=== PATIENT | male | born 1985 | race Hispanic/Latino ===

== ENCOUNTER 2021-06-23 17:53 | Inpatient (IN) | payer OTHER ==
[~2021-06-23] VITALS: Ht 180.3 cm; Wt 60.9 kg
[2021-06-23] MEDS ORDERED: SODIUM CHLORIDE 0.9% 500ML 500 ML IV ONE ×2 (18:15→21:15)
[2021-06-23 18:26] LABS: BASOPHILS % 0.2 % (0.0-1.0); EOSINOPHILS # (AUTO) 0.2 (0.0-0.4); EOSINOPHILS % 1.2 % (0.0-6.0); HEMATOCRIT 32.7 % (38.2-49.6); HEMOGLOBIN 10.9 g/dL (14.0-18.0); LYMPHOCYTES # (AUTO) 3.1 (1.0-3.2); LYMPHOCYTES % 16.6 % (18.0-39.1); MEAN CORPUSCULAR HEMOGLOBIN 29.2 pg (28-32); MEAN CORPUSCULAR HGB CONC 33.3 g/dL (31-35); MEAN CORPUSCULAR VOLUME 87.7 fL (81-99); MONOCYTES # (AUTO) 1.2 (0.2-0.8); MONOCYTES % 6.2 % (4.4-11.3); NEUTROPHILS % 73.8 % (38.7-80.0); PLATELET COUNT 286 x10e3/uL (140-360); RED BLOOD COUNT 3.73 x10e6/uL (4.3-5.7); RED CELL DISTRIBUTION WIDTH 14.8 % (11.7-14.4)
[2021-06-23 18:38] LABS: INR 0.84; PROTHROMBIN TIME 12.2 seconds (11.9-14.5)
[2021-06-23 18:39] LABS: PARTIAL THROMBOPLASTIN TIME 27.8 seconds (23.8-35.5)
[2021-06-23] MEDS ORDERED: NALOXONE HCL 2MG/2 ML SYRINGE IV ONE ×2 (18:45→22:00)
[2021-06-23 18:48] LABS: ALBUMIN 2.4 g/dL (3.5-5.0); ALBUMIN/GLOBULIN RATIO 1.2 (0.8-2.0); ANION GAP 17.4 mmol/L (8-16); CALCIUM 7.9 mg/dL (8.4-10.2); CREATININE, SERUM 9.66 mg/dL (0.72-1.25); POTASSIUM 4.4 mmol/L (3.5-5.1)
[2021-06-23 18:56] LABS: CREATINE KINASE MB 4.5 ng/mL (0-5.0)
[2021-06-23] MEDS ORDERED: METOCLOPRAMIDE10 MG PO (19:11)
[2021-06-23] MEDS ORDERED: PROPRANOLOL HCL10 MG PO (19:11)
[2021-06-23] MEDS ORDERED: MIDODRINE HCL5 MG PO (19:11)
[2021-06-23] MEDS ORDERED: AURYXIA210 MG PO (19:11)
[2021-06-23] MEDS ORDERED: PROTONIX20 MG PO (19:11)
[2021-06-23] MEDS ORDERED: ULTRAM50 MG PO (19:11)
[2021-06-23] MEDS ORDERED: FOLIC ACID0.4 MG PO (19:11)
[2021-06-23] MEDS ORDERED: BUPROPION HCL75 MG PO (19:11)
[2021-06-23] MEDS ORDERED: FUROSEMIDE40 MG PO (19:11)
[2021-06-23] MEDS ORDERED: SODIUM CHLORIDE FLUSH 10 ML SYR INJ PRN (21:15)
[2021-06-23] MEDS: PIPERACILLIN/TAZOBACTAM 2.25 GM in SODIUM CHLORIDE 0.9% 50ML 50 ML IV SCH (21:24)
[2021-06-23] MEDS ORDERED: SODIUM CHLORIDE 0.9% 500ML 500 ML ONE (21:29)
[2021-06-23] MEDS: MIDODRINE HCL 5 MG TABLET PO SCH (21:58)
[2021-06-23] MEDS ORDERED: NALOXONE HCL 2MG/2 ML SYRINGE ONE (22:03)
[2021-06-23 22:20] VITALS: BP 85/63
[2021-06-23 22:30] VITALS: BP 76/41
[2021-06-23] MEDS ORDERED: VASOPRESSIN 60 UNIT in DEXTROSE 5% 50ML 57 ML IV PRN (22:45)
[2021-06-23] MEDS ORDERED: ALBUMIN 25% 25GM 100ML 0.25 GM/ML BTL IV ONE (22:45)
[2021-06-23] MEDS ORDERED: ALBUMIN 25% 25GM 100ML 100 ML ONE (22:47)
[2021-06-23 23:00] VITALS: BP 75/52
[2021-06-23 23:41] VITALS: BP 85/63
[2021-06-24] VITALS (32 sets, daily range): BP systolic 66–95; BP diastolic 43–67
[2021-06-24 02:36] LABS: CREATINE KINASE MB 5.3 ng/mL (0-5.0)
[2021-06-24] MEDS: METRONIDAZOLE 500MG/NS 100ML 100 ML IV SCH ×3 (05:25→11:17)
[2021-06-24 06:38] LABS: BASOPHILS # (AUTO) 0.1 (0.0-0.1); BASOPHILS % 0.3 % (0.0-1.0); EOSINOPHILS # (AUTO) 0.3 (0.0-0.4); EOSINOPHILS % 1.5 % (0.0-6.0); HEMATOCRIT 31.4 % (38.2-49.6); LYMPHOCYTES # (AUTO) 2.3 (1.0-3.2); LYMPHOCYTES % 12.7 % (18.0-39.1); MEAN CORPUSCULAR HEMOGLOBIN 30.1 pg (28-32); MONOCYTES # (AUTO) 1.2 (0.2-0.8); MONOCYTES % 6.5 % (4.4-11.3); NEUTROPHILS # (AUTO) 13.8 (2.1-6.9); NEUTROPHILS % 77.4 % (38.7-80.0); PLATELET COUNT 260 x10e3/uL (140-360); RED BLOOD COUNT 3.65 x10e6/uL (4.3-5.7); RED CELL DISTRIBUTION WIDTH 14.9 % (11.7-14.4)
[2021-06-24 07:16] LABS: ALBUMIN 1.9 g/dL (3.5-5.0); ALBUMIN/GLOBULIN RATIO 0.8 (0.8-2.0); ALKALINE PHOSPHATASE 101 IU/L (40-150); ANION GAP 16.3 mmol/L (8-16); BLOOD UREA NITROGEN 43 mg/dL (7-26); BUN/CREATININE RATIO 4 (6-25); CALCIUM 8.3 mg/dL (8.4-10.2); CARBON DIOXIDE 18 mmol/L (22-29); CHLORIDE 92 mmol/L (98-107); CREATININE, SERUM 9.65 mg/dL (0.72-1.25); EST GLOMERULAR FILTRATION RATE 6 ML/MIN (60-); GLUCOSE 78 mg/dL (74-118); POTASSIUM 4.3 mmol/L (3.5-5.1); SODIUM 122 mmol/L (136-145)
[2021-06-24 07:18] LABS: ALANINE AMINOTRANSFERASE < 6 IU/L (0-55)
[2021-06-24] MEDS: PIPERACILLIN/TAZOBACTAM 2.25 GM in SODIUM CHLORIDE 0.9% 50ML 50 ML IV SCH (08:42)
[2021-06-24] MEDS: MIDODRINE HCL 5 MG TABLET PO SCH ×3 (08:42→16:26)
[2021-06-24] MEDS: PANTOPRAZOLE SOD 40 MG TABEC PO SCH (08:42)
[2021-06-24 13:50] LABS: CREATINE KINASE MB 3.9 ng/mL (0-5.0)
[2021-06-24 18:16] LABS: CREATINE KINASE MB 3.8 ng/mL (0-5.0)
[2021-06-24] MEDS: PIPERACILLIN/TAZOBACTAM 3.375 GM in SODIUM CHLORIDE 0.9% 50ML 50 ML IV SCH (20:58)
[2021-06-24] MEDS: ACETAMINOPHEN 325 MG TAB PO PRN (21:45)
[2021-06-25] VITALS (24 sets, daily range): BP systolic 64–98; BP diastolic 40–66
[2021-06-25] MEDS: PIPERACILLIN/TAZOBACTAM 3.375 GM in SODIUM CHLORIDE 0.9% 50ML 50 ML IV SCH ×2 (08:52→20:59)
[2021-06-25] MEDS: MIDODRINE HCL 5 MG TABLET PO SCH ×2 (09:00→17:12)
[2021-06-25] MEDS: SODIUM CHLORIDE 0.9% 1000ML 1,000 ML IV SCH ×2 (09:00→18:27)
[2021-06-25] MEDS: PANTOPRAZOLE SOD 40 MG TABEC PO SCH (09:00)
[2021-06-25] MEDS ORDERED: ALBUMIN 25% 12.5GM 0.25 GM/ML BTL IV PRN (11:15)
[2021-06-25] MEDS ORDERED: MANNITOL 25% 12.5GM/50 ML VIAL IV PRN (11:15)
[2021-06-25] MEDS ORDERED: SODIUM CHLORIDE 0.9% 250ML 250 ML IV PRN (11:15)
[2021-06-25] MEDS ORDERED: SODIUM CHLORIDE 0.9% 1000ML 2,000 ML IV PRN (11:15)
[2021-06-25] MEDS ORDERED: ALBUMIN 25% 25GM 100ML 0.25 GM/ML BTL IV SCH (12:00)
[2021-06-25] MEDS: ALBUMIN 25% 25GM 100ML 100 ML IV SCH ×2 (12:14→18:26)
[2021-06-25] MEDS ORDERED: ALBUMIN 25% 12.5GM 50ML 150 ML IV ONE (14:22)
[2021-06-25 16:26] LABS: BODY FLUID APPEARANCE SL.CLOUDY; BODY FLUID COLOR YELLOW; BODY FLUID TYPE PERITONEAL; WBC,BODY FLUID 232 cells/uL
[2021-06-25 16:27] LABS: RBC,BODY FLUID < 2000 cells/uL
[2021-06-25 17:54] LABS: LYMPHOCYTES,BODY FLUID 14 %; MONO/MACROPHG,BODY FLUID 75 %; NEUTROPHILS,BODY FLUID 8 %; OTHER CELLS,BODY FLUID 3 %
[2021-06-26] VITALS (9 sets, daily range): BP systolic 85–105; BP diastolic 49–89
[2021-06-26] MEDS: ALBUMIN 25% 25GM 100ML 100 ML IV SCH ×2 (00:30→05:24)
[2021-06-26] MEDS: MIDODRINE HCL 5 MG TABLET PO SCH ×3 (00:30→16:01)
[2021-06-26 04:56] LABS: BASOPHILS # (AUTO) 0.1 (0.0-0.1); BASOPHILS % 0.5 % (0.0-1.0); EOSINOPHILS # (AUTO) 0.2 (0.0-0.4); EOSINOPHILS % 1.2 % (0.0-6.0); HEMATOCRIT 28.3 % (38.2-49.6); HEMOGLOBIN 9.8 g/dL (14.0-18.0); LYMPHOCYTES # (AUTO) 1.8 (1.0-3.2); LYMPHOCYTES % 12.6 % (18.0-39.1); MEAN CORPUSCULAR HEMOGLOBIN 29.5 pg (28-32); MEAN CORPUSCULAR HGB CONC 34.6 g/dL (31-35); MEAN CORPUSCULAR VOLUME 85.2 fL (81-99); MONOCYTES # (AUTO) 1.2 (0.2-0.8); MONOCYTES % 8.4 % (4.4-11.3); NEUTROPHILS % 76.2 % (38.7-80.0); PLATELET COUNT 265 x10e3/uL (140-360); RED BLOOD COUNT 3.32 x10e6/uL (4.3-5.7); RED CELL DISTRIBUTION WIDTH 15.2 % (11.7-14.4)
[2021-06-26 05:19] LABS: ANION GAP 20.6 mmol/L (8-16); CALCIUM 8.2 mg/dL (8.4-10.2); CREATININE, SERUM 11.25 mg/dL (0.72-1.25); MAGNESIUM 2.3 MG/DL (1.3-2.1); POTASSIUM 3.6 mmol/L (3.5-5.1)
[2021-06-26] MEDS: SODIUM CHLORIDE 0.9% 1000ML 1,000 ML IV SCH (05:24)
[2021-06-26] MEDS: PIPERACILLIN/TAZOBACTAM 3.375 GM in SODIUM CHLORIDE 0.9% 50ML 50 ML IV SCH (08:20)
[2021-06-26] MEDS: PANTOPRAZOLE SOD 40 MG TABEC PO SCH (08:20)
[2021-06-26] MEDS ORDERED: HEPARIN SOD (PORCINE) 1000 UNIT/ML SDV IV PRN (13:45)
[2021-06-26] MEDS: BALSAM PERU/CASTOR OIL 60 GM OINT...G. TP SCH (17:00)
[2021-06-26] MEDS: HYDROCORTISONE SOD SUCCINATE 100 MG VIAL IV SCH (17:26)
[2021-06-26] MEDS: ALBUMIN 25% 25GM 100ML 0.25 GM/ML BTL IV SCH ×2 (17:26→23:35)
[2021-06-26] MEDS: ACETAMINOPHEN 325 MG TAB PO PRN (19:34)
[2021-06-26] MEDS ORDERED: ALBUMIN 25% 25GM 100ML 100 ML ONE (23:44)
[2021-06-27] VITALS (7 sets, daily range): BP systolic 89–131; BP diastolic 57–91
[2021-06-27] MEDS: MIDODRINE HCL 5 MG TABLET PO SCH ×3 (00:21→16:47)
[2021-06-27] MEDS: HYDROCORTISONE SOD SUCCINATE 100 MG VIAL IV SCH ×2 (01:43→10:32)
[2021-06-27] MEDS: ALBUMIN 25% 25GM 100ML 0.25 GM/ML BTL IV SCH (06:10)
[2021-06-27] MEDS ORDERED: ALBUMIN 25% 25GM 100ML 100 ML ONE (06:20)
[2021-06-27] MEDS: PANTOPRAZOLE SOD 40 MG TABEC PO SCH (08:26)
[2021-06-27] MEDS: BALSAM PERU/CASTOR OIL 60 GM OINT...G. TP SCH ×2 (08:47→16:47)
[2021-06-27] MEDS ORDERED: ALBUMIN 25% 25GM 100ML 100 ML IV SCH (12:30)
[2021-06-27] MEDS: HYDROCORTISONE 10 MG TAB PO SCH ×2 (16:08→21:04)
[2021-06-28] VITALS (7 sets, daily range): BP systolic 99–126; BP diastolic 73–103
[2021-06-28] MEDS: MIDODRINE HCL 5 MG TABLET PO SCH ×3 (01:20→17:07)
[2021-06-28] MEDS: HYDROCORTISONE 10 MG TAB PO SCH (05:06)
[2021-06-28 05:11] LABS: BASOPHILS % 0.2 % (0.0-1.0); HEMATOCRIT 31.8 % (38.2-49.6); LYMPHOCYTES # (AUTO) 1.5 (1.0-3.2); LYMPHOCYTES % 5.9 % (18.0-39.1); MEAN CORPUSCULAR HEMOGLOBIN 29.5 pg (28-32); MEAN CORPUSCULAR HGB CONC 34.6 g/dL (31-35); MEAN CORPUSCULAR VOLUME 85.3 fL (81-99); MONOCYTES # (AUTO) 1.3 (0.2-0.8); MONOCYTES % 5.1 % (4.4-11.3); NEUTROPHILS # (AUTO) 21.8 (2.1-6.9); NEUTROPHILS % 87.3 % (38.7-80.0); PLATELET COUNT 285 x10e3/uL (140-360); RED BLOOD COUNT 3.73 x10e6/uL (4.3-5.7); RED CELL DISTRIBUTION WIDTH 15.5 % (11.7-14.4)
[2021-06-28 05:53] LABS: ANION GAP 18.7 mmol/L (8-16); CALCIUM 10.3 mg/dL (8.4-10.2); CREATININE, SERUM 8.66 mg/dL (0.72-1.25); POTASSIUM 3.7 mmol/L (3.5-5.1)
[2021-06-28 06:12] LABS: LYMPHOCYTES % (MANUAL) 7 % (19-48); MONOCYTES % (MANUAL) 4 % (3.4-9.0); NEUTROPHILS % (MANUAL) 89 % (40-74); PLATELET ESTIMATE ADEQUATE; PLATELET MORPHOLOGY COMMENT NORMAL; RBC MORPHOLOGY COMMENT NORMAL
[2021-06-28] MEDS: PANTOPRAZOLE SOD 40 MG TABEC PO SCH (08:37)
[2021-06-28] MEDS: BALSAM PERU/CASTOR OIL 60 GM OINT...G. TP SCH ×2 (08:37→17:07)
[2021-06-28] MEDS ORDERED: CITALOPRAM HYDROBROMIDE 20 MG TAB PO SCH (09:00)
[2021-06-28] MEDS ORDERED: HYDROCORTISONE 10 MG TAB PO SCH ×2 (12:45→18:00)
[2021-06-28] MEDS ORDERED: CELEXA10 MG PO (17:53)
[2021-06-29] MEDS ORDERED: CITALOPRAM HYDROBROMIDE 20 MG TAB PO SCH (09:00)
== END 2021-06-28 18:28 | disposition home or self-care (01) | DRG 314 ==
LOC: ER 18:09 → ERHOLD 21:27 → ICU 22:14 → IMCU 06-26 21:05
PROVIDERS: ADMIT Internal Medicine; ATTEND Internal Medicine
PROC: 0W9G3ZZ Drainage of Peritoneal Cavity, Percutaneous Approach (ICD-10-PCS; principal; 2021-06-25)
PROC: 5A1D70Z Performance of Urinary Filtration, Intermittent, Less than 6 Hours Per Day (ICD-10-PCS; 2021-06-26)
DX: I95.89 Other hypotension (principal); N18.6 End stage renal disease; I12.0 Hypertensive chronic kidney disease with stage 5 chronic kidney disease or end stage renal disease; E87.1 Hypo-osmolality and hyponatremia; R18.8 Other ascites; E44.0 Moderate protein-calorie malnutrition; Z68.1 Body mass index [BMI] 19.9 or less, adult; E11.43 Type 2 diabetes mellitus with diabetic autonomic (poly)neuropathy; I95.9 Hypotension, unspecified; E11.22 Type 2 diabetes mellitus with diabetic chronic kidney disease; Z99.2 Dependence on renal dialysis; K74.60 Unspecified cirrhosis of liver; D72.828 Other elevated white blood cell count; T38.0X5A Adverse effect of glucocorticoids and synthetic analogues, initial encounter; G89.29 Other chronic pain; F32.A Depression, unspecified; L89.302 Pressure ulcer of unspecified buttock, stage 2; D63.8 Anemia in other chronic diseases classified elsewhere
CPT/HCPCS: 36415; 49083; 70450; 71045; 72125; 76700; 80048; 80053; 80320; 82140; 82550; 82553; 83605; 83735; 84100; 84484; 85025; 85610; 85730; 86705; 86706; 87040; 87070; 87205; 87340; 89051; 90962; 93005; 94799; 99285; J1644; J1720; J2310; J2543; J7030; J7040; P9047; U0002